=== PATIENT | female | born 1965 | race Caucasian/White ===

== ENCOUNTER 2016-04-11 18:19 | Emergency (ER) | payer BC ==
[2016-04-11 18:37] VITALS: RESP 16; TEMP 98
[2016-04-11 18:43] LABS: BASOPHILS % (AUTO) 1 % (0-3); EOSINOPHILS % (AUTO) 1 % (0-9); HEMATOCRIT 35 % (35-47); MEAN CORPUSCULAR HGB CONC 34.9 gm/dl (32.0-36.0); MONOCYTES % (AUTO) 10.2 % (0-12); NEUTROPHILS % (AUTO) 66.6 % (37-80)
[2016-04-11 18:51] LABS: CALCIUM 8.3 mg/dl (8.5-10.1); POTASSIUM 3.2 mMol/L (3.5-5.1)
[2016-04-11 20:09] VITALS: BP 131/45; PULSE 60; O2SAT 98
[2016-04-11 20:55] LABS: ABO A; RH TYPE Negative
[2016-04-11 20:56] LABS: ANTIBODY SCREEN Negative
== END 2016-04-11 20:16 | disposition short-term general hospital (02) ==
LOC: ED 18:19
DX: N93.9 Abnormal uterine and vaginal bleeding, unspecified (principal); Z98.890 Other specified postprocedural states
CPT/HCPCS: 36415; 80048; 85025; 86850; 86900; 86901; 99282; 99284; A6402

== ENCOUNTER 2018-09-20 18:13 | Emergency (ER) | payer BC ==
[2018-09-20 21:28] VITALS: BP 127/85; PULSE 77; RESP 20; TEMP 96.9; O2SAT 96
== END 2018-09-20 21:59 | disposition home or self-care (01) ==
LOC: ED 18:13
DX: R10.30 Lower abdominal pain, unspecified (principal); N83.202 Unspecified ovarian cyst, left side
CPT/HCPCS: 74177; 99283; Q9967